=== PATIENT | female | born 1990 | race Two or more races ===

== ENCOUNTER → 2020-09-05 | Day surgery (SDC) | payer MEDICAID, OTHER ==
[~2020-09-05] MED LIST: BECL7.3A INH; FLUT1DIS4 INH; IBUP-1985 PO; LAMO100T2 PO; LEVE10006 PO; LEVO75TA7 PO; LORA10TA45 PO; NORE1PAT7 TOP; ONDA4TAB6 PO; PANT-47 PO; RANI300C PO; SENN-251 PO; TOPI50TA24 PO; TRAZ-251 PO; TRAZ-256 PO
== END | disposition home or self-care (01) ==
LOC: RAD 09:21
PROVIDERS: ATTEND Physician Assistant
DX: R11.2 Nausea with vomiting, unspecified (principal); R10.9 Unspecified abdominal pain; E10.65 Type 1 diabetes mellitus with hyperglycemia; Z79.4 Long term (current) use of insulin; Z79.899 Other long term (current) drug therapy
CPT/HCPCS: 78264; A9541

== ENCOUNTER 2023-04-27 14:49 | Outpatient (CLI) | payer MEDICAID, OTHER ==
[~2023-04-27 14:49] MED LIST changes: +TOPI-95 PO; -TOPI50TA24 PO
== END 2023-04-27 23:59 | disposition home or self-care (01) ==
LOC: RT 14:49
PROVIDERS: ATTEND Physician Assistant
DX: J45.998 Other asthma (principal)
CPT/HCPCS: 94010